=== PATIENT | female | born 1995 | race Caucasian/White ===

== ENCOUNTER 2019-07-16 14:15 | Emergency (ER) | payer MEDICAID, OTHER ==
[~2019-07-16] VITALS: Ht 167.6 cm; Wt 60.0 kg
[~2019-07-16 14:15] MED LIST: ONDA8TAB9 PO
[2019-07-16 14:26] VITALS: BP 121/63
--- NOTE | 2019-07-16 14:54 | NUR ---
PT REPORTS HAVING A MISCARRIAGE THE END OF APRIL, FIRST OF MAY. PT TOOK A TEST RECENTLY AND IT WAS POSITIVE. PT IS C/O LOW ABD PAIN
[2019-07-16 15:01] LABS: CLARITY,URINE SLIGHTLY CLOUDY (Clear); COLOR,URINE YELLOW (Yellow); GLUCOSE, URINE NEGATIVE (Neg); KETONES,URINE TRACE mg/dl (Neg); LEUKOCYTE ESTERASE ,URINE TRACE (Neg); NITRITES, URINE NEGATIVE (Neg); OCCULT BLOOD,URINE NEGATIVE (Neg); PROTEIN,URINE NEGATIVE (Neg); UROBILINOGEN,URINE 0.2 E.U/dL (0.2-1.0)
[2019-07-16 15:02] LABS: UA COLLECTION TYPE CLN CATCH MIDSTREAM
[2019-07-16 15:08] LABS: BACTERIA,URINE 2+ /HPF (Neg); MUCUS STRANDS FEW /LPF (Neg); RBC,URINE 0-2 /HPF (0-2); SQUAMOUS EPITHELIAL CELL,UR MANY /LPF (FEW)
[2019-07-16 15:13] LABS: URINE HCG POSITIVE (NEG)
[2019-07-16] MEDS ORDERED: CEPH500C5 PO (17:01)
== END 2019-07-16 17:22 | disposition home or self-care (01) ==
LOC: ER 14:16
DX: O23.41 Unspecified infection of urinary tract in pregnancy, first trimester (principal); Z32.01 Encounter for pregnancy test, result positive; Z3A.01 Less than 8 weeks gestation of pregnancy; Z79.899 Other long term (current) drug therapy
CPT/HCPCS: 36415; 76817; 81001; 81025; 84702; 99284